=== PATIENT | female | born 1955 | race Caucasian/White ===

== ENCOUNTER 2022-08-19 10:36 | Outpatient (OUT) | payer MEDICARE, SELFPAY ==
--- NOTE | 2022-08-19 10:48 | ECG_ITS ---
[facility] Test Date: 2022-08-19 Pat Name: Catalina Rodriguez Department: Room: - Gender: Female Reconciliation Manager: : [id number] Requested By: LANCE COLÓN Order Number: [id number] Reading MD: YARELY MORRISON Measurements Intervals [place] Rate: 72 P: 5 MA: 146 QRS: -4 QRSD: 86 T: 4 QT: 396 QTc: 435 Interpretive Statements SINUS RHYTHM VOLTAGE CRITERIA FOR LVH [MEETS CRITERIA IN ONE OF: R(aVL), S(V1), R(V5), R(V5/V6)+S(V1)] Non-Specific T wave inversion in III No previous ECG available for comparison Electronically Signed On 08-20-2022 7:15:14 EDT by YARELY MORRISON
== END 2022-08-19 10:37 ==
PROVIDERS: PCP Family Medicine
DX: Z01.810 Encounter for preprocedural cardiovascular examination (principal); K82.8 Other specified diseases of gallbladder
CPT/HCPCS: 93005

== ENCOUNTER 2022-08-23 07:45 | Day surgery (SDC) | payer MEDICARE, SELFPAY ==
[2022-08-19 11:08] VITALS: BP 136/87; PULSE 77; RESP 20; TEMP 36.3; O2SAT 98; BMI 35.5
[2022-08-23] VITALS (16 sets, daily range): BP systolic 136–175; BP diastolic 64–84; PULSE 61–80; RESP 14–24; TEMP 36.4–36.6; O2SAT 89–100; BMI 34.9
[2022-08-23] MEDS: LACTATED RINGER'S SOLUTION 1,000 ML 50 ML IV (08:50)
[2022-08-23] MEDS: INDOCYANINE GREEN 25 MG VIAL INJ (08:53)
[2022-08-23] MEDS: CEFAZOLIN SODIUM/DEXTROSE,ISO 2 GM/50 ML PIGGYBACK IV (09:05)
[2022-08-23] MEDS: BUPIVACAINE HCL 0.5% PF 50 MG/10 ML VIAL 20 ML INJ (09:18)
[2022-08-23] MEDS: HYDROCODONE/ACETAMINOPHEN 5-325 MG TABLET 1 TAB PO (10:45)
[2022-08-23] MEDS: HYDROMORPHONE HCL 0.5 MG/0.5 ML SYRINGE IV ×2 (10:55→11:06)
--- NOTE | 2022-08-23 11:37 | PM.GSPRC ---
Date of procedure: 08/19/22 Indications for Procedure: This patient is a 67-year-old female who was recently seen for episodes of right upper quadrant pain. Gallbladder ultrasound was normal. HIDA scan revealed a decreased gallbladder ejection fraction. . Robotic cholecystectomy was recommended. The risks benefits options and potential complications of the procedure were discussed in detail with the patient and they agreed to proceed and consent was signed. Pre-op diagnosis: biliary dyskinesia Post-op diagnosis: same Procedure: robotic cholecystectomy with ICG cholangiogram Surgeon: Gilson Stephenson Procedure Summary: The patient was brought to the operating room placed in the supine position. Gen. anesthesia was induced and the patient was intubated. The abdomen was prepped and draped in usual sterile fashion. She had been given preoperative IV antibiotics and was also given preoperative ICG. A site in the left upper quadrant was infiltrated with half percent Marcaine with epinephrine. A small incision was made. A 12 mm port was placed through this incision and advanced into the peritoneal cavity under laparoscopic guidance. The abdomen was then insufflated to 15 mmHg of carbon dioxide. The camera was reintroduced and safe port site entry was confirmed. Three 8 mm robotic ports were then placed, one at the umbilicus and two in the right lateral abdomen following local anesthesia under direct visualization. The camera was removed and an additional 8 mm port was placed through the 12 mm port. the patient was then placed in reverse Trendelenburg position and banked to the left. At this time the da Felicity XI was brought to the field and camera was introduced and all ports direct and instruments introduced in standard fashion.at this time I left the operating table and attended the surgeon consult. The fundus of the gallbladder is grasped and retracted cephalad. The region of Calvin's pouch was grasped and retracted laterally. Dissection was not carried out in the region of the triangle of Calot. The cystic duct was readily identified. This was confirmed with a cane flume watchman. This was then divided between clips. Posterior to this the cystic artery was identified. This was divided after clip placement. The gallbladder was then taken off the liver using electrocautery. Excellent hemostasis and secured clip placement was noted. The gallbladder was then placed in a retrieval bag. This was brought out through the 12 mm port site intact. Instruments, camera and ports were subsequently removed and the abdomen was desufflated. Skin incisions were closed with subcuticular sutures of 4-0 Vicryl. Sterile dressings were applied. The patient tolerated the procedure well and was transferred to the recovery area in stable condition. Estimated blood loss (mL): 2 Specimens: gallbladder Complications: No
== END 2022-08-23 13:00 | disposition home or self-care (01) ==
PROVIDERS: PCP Family Medicine; Visit Provider Surgery
PROC: (CPT 47563; principal; 2022-08-23 08:30)
DX: K82.8 Other specified diseases of gallbladder (principal); Z96.651 Presence of right artificial knee joint; J84.112 Idiopathic pulmonary fibrosis; G47.33 Obstructive sleep apnea (adult) (pediatric); R05.3 Chronic cough; J98.4 Other disorders of lung
CPT/HCPCS: 47563; 36415; 88304; 99999; J1170; J2704

== ENCOUNTER 2025-01-22 14:23 | Outpatient (OUT) | payer OTHER, SELFPAY ==
--- OUTSIDE RECORDS SUMMARY | 2025-01-22 14:30 | XMS_ITS | Patient Health Record ---
Author Organization [facility] in [place] Address [address] [place] [address] Care Team Providers Care Gl Accountant Name Role Phone Eric Dailey MD Primary Care Provider Unavailab le Allergies Allergen (clinical drug ingredient) Drug/Non Drug Allergy documented on EMR Reaction Allergy Type Onset Date Status Substance with sulfonamide s tructure and antibacterial mechanism of action (substance) Sulfa Antibiotics Unknown Drug Allergy Active Reason For Referral No Information Medications Medication SIG (Take, Route, Frequency, Duration) Notes Start Date End Date Status Esbriet 267 MG 3 capsules with food Orally Thre e times a day ActiveLevothyroxine SodiumActiveOmeprazole 40 MG1 capsule 30 minutes before morning meal Orally Once a dayActiveSimvastatin 40 MG1 tablet in the evening Orally Once a dayActive Social History Tobacco Use: Social History Observation Description Date Details (start date - stop date) Never Smoker NA - NA Tobacco Use/Smoking Question Answer Notes Patient is a nonsmoker Problems Problem Type SNOMED Code ICD Code Onset Dates Problem Status W/U Status Risk Notes Problem History of excision of intestinal structure (605450121) Acquired absence of other specified parts of digestive tract (Z90.49) Activeconfirmed Plan Of Treatment No Information Insurance Providers Payer Name Payer Address Payer Phone Subscriber Number Group Number Insured Name Patient Relationship to Insured Coverage Start Date Coverage End Date [place] [address] [place] [address] [id number] Bárbara Rodriguezelf - patient is the insuredAARP MEDICARE ADVANTAGEPO [address] [address] [place] [phone], TracySelf - patient is the insured Medical (General) History Medical History History ICD Code Abdominal pain, RUQ R10.11 Biliary dyskinesia K82.8 Surgical History Surgery Date(Month/Year) robotic cholecystectomy with ICG cholang iogram DOS 08/23/22 Dr Stephenson 08/23/2022 L shoulder Triceptear 2013 r knee replacement 2013 knee meniscus 1996 Hospitalization History Reason Date(Month/Year) see above
--- OUTSIDE RECORDS SUMMARY | 2025-01-22 14:30 | XMS_ITS | Clinical Summary ---
Demographics Address [address] [place] [address] Home Phone Mobile Phone Email Address Preferred Language en Marital Status Mormonism Affiliation Unknown Race White Ethnic Group Not or Lati no Author Organization [facility] Address [address] [place] [address] Care Team Providers Care Passenger Service Supervisor Name Role Phone Eric Dailey MD Primary Care Provider [phone] Social History Tobacco UseTypesPacks/DayYears UsedDateSmoking Tobacco: Never Assessed CommentsUnknownSex and Gender InformationValueDate RecordedSex Assigned at Not on fileLegal UxsMysthi09/15/2023 6:35 PM EDTGender IdentityNot on fileSexual OrientationNot on file Last Filed Vital Signs Vital SignReadingTime TakenCommentsBlood Pressure--Pulse--Temperature-- Respiratory Rate--Oxygen Saturation--Inhaled Oxygen Concentration--Nolaep64.7 kg (178 lb)10/27/2021 12:00 PM KDGFktgee352.9 cm (5' 1 )10/27/2021 12:00 PM EDTBody Mass Index33.6308 12:00 PM EDT Plan of Treatment Not on file Insurance * Guarantor: Catalina Rodriguez TypeRelation to PatientDate of PhoneBilling AddressPersonal/TjqipfQbtv81/25/1956 [address] [place] [address] Care Teams Team MemberRelationshipSpecialtyStart DateEnd Date Eric Dailey MD PCP - GeneralFamily Medicine11/11/22
--- OUTSIDE RECORDS SUMMARY | 2025-01-22 14:30 | XMS_ITS | Clinical Summary ---
Author Organization [facility] Address [address] [place] [address] Care Team Providers Care Data Compiler Name Role Phone Eric Dailey MD Primary Care Provider Allergies Active AllergyReactionsCriticalityNoted DateCommentsSulfa (Sulfonamide Antibiotics)Rash-Mild06/22/2017 Medications MedicationSigDispense QuantityRefillsLast FilledStart DateEnd DateStatus simvastatin (ZOCOR) 40 mg tablet 40 mg once daily.03/17/2017Active SYNTHROID 150 mcg tablet 150 mcg once daily, 30 min prior to meal.04/21/2017Active omeprazole (PriLOSEC) 20 mg delayed release capsule 20 mg once daily.04/22/2017Active melatonin 10 mg Tablet 10 mg at bedtime.Active acetaminophen (TYLENOL ORAL) Indications:unknown dosageas needed. Indications: unknown dosageActive albuterol 90 mcg/actuation HFA inhaler Inhale 2 puffs by mouth every four to six hours as needed for shortness of breath. 1 inhaler 12104/10/2017Active pirfenidone (ESBRIET) 801 mg tablet Take 1 tablet (801 mg) by mouth three times daily with meals. 90 tablet Active Active Problems ProblemNoted DateDiagnosed DateIPF (idiopathic pulmonary fibrosis)08/04/[address]08/04/2017Interstitial lung uccmlvd5506/27/2017Dyspnea on nfglpmxy82/17/2018 Family History Medical HistoryRelationNameCommentsDiabetesMotherRelationNameStatusComments Mother Social History Tobacco UseTypesPacks/DayYears UsedDateSmoking Tobacco: FormerCigarettes0.310008 - 1978Smokeless Tobacco: FormerAlcohol UseStandard Drinks/WeekCommentsYes0 (1 standard drink = 0.6 oz pure alcohol)occasionalCommentsUnknownSex and Gender InformationValueDate RecordedSex Assigned at BirthNot on fileLegal Sex Smooad1105/26/2017 11:48 AM EDTGender IdentityNot on fileSexual OrientationNot on file Last Filed Vital Signs Vital SignReadingTime TakenCommentsBlood Hzsakhxa740/6311 2:44 PM EST Iuzgy866301/17/2019 2:44 PM ESTTemperature--Respiratory Yghl472603/19/2018 2:44 PM ESTOxygen Gxgrixfote52%01/17/2019 2:44 PM ESTInhaled Oxygen Concentration-- Ekiggv01.4 kg (192 lb 9.6 oz)01/17/2019 2:44 PM MWBGguelu785.9 cm (5' 0.2 ) 01/17/2019 2:44 PM ESTBody Mass Index37.37103/19/2018 2:44 PM EST Plan of Treatment Health MaintenanceDue DateLast DoneCommentsCologuard (average risk only) 1955 8231Qmfzjvrrqsf11/25/1957Colorectal Cancer Jiauvsgmm69/25/1957FIT (average risk only)1956Hepatitis C Mtfynojqs04/25/1957DTaP,Tdap,and Td Vaccines (1 - Tdap)1975Pneumococcal Vaccines 50years + (1 of 1 - PCV)2006Zoster Recombinant Vaccines (1 of 2)2006DEXA Bone Density Xkofrbej30/25/2022 Alternating Mammogram/MRI/OVID-19 Vaccine (1 - 2024- season)2024Influenza Vaccine (#1)2024reast Cancer Screening 01/30/20255123Hxrppejsl20Respiratory Syncytial Virus (RSV) or ages 60 years and older (1 - 1-dose 75+ series)2031 Respiratory Syncytial Virus (RSV) ages 0 thru 19 monthsAged OutNo longer eligible based on patient's age to complete this topic Insurance Care Teams Team MemberRelationshipSpecialtyStart DateEnd Date Eric Dailey MD [address] [place] [address] PCP - GeneralFamily Medicine05/31/17
--- OUTSIDE RECORDS SUMMARY | 2025-01-22 14:30 | XMS_ITS | Clinical Summary ---
Author Organization [employer] Address [id number] [address] [place] [address] Care Team Providers Care Dumper Mold Cleaner Name Role Phone Antonia BurtRadha GUZMANN-POCKET GRINDER OPERATOR Primary Care Provider [phone] Allergies Active AllergyReactionsCriticalityNoted DateCommentsSulfa (Sulfonamide Antibiotics)Itching,YsjrAokjkn69/18/2017 Medications MedicationSigDispense QuantityRefillsLast FilledStart DateEnd DateStatus omeprazole (PriLOSEC) 20 mg capsule Take 1 capsule (20 mg total) by mouth once daily.Active simvastatin (ZOCOR) 40 mg tablet Take 1 tablet (40 mg total) by mouth in the morning.09/29/2016Active SYNTHROID 150 mcg tablet Take 1 tablet (150 mcg total) by mouth in the morning.10/26/2016Active melatonin 10 mg tablet Take 10 mg by mouth nightly as needed.Active HYDROcodone-acetaminophen (NORCO) 5-325 mg per tablet as needed.10/10/2017Active pirfenidone 801 mg tablet Indications:Fibrosis lung (CMS-HCC)TAKE 1 TABLET BY MOUTH THREE TIMES DAILY WITH FOOD 60 tablet 5ActiveHospital, Clinic, or Other Facility Administered Medication Ordered DoseRouteFrequencyStart DateEnd DateStatus albuterol (PROVENTIL,VENTOLIN) nebulizer solution 2.5 mg Indications:Idiopathic pulmonary fibrosis (CMS-HCC)2.5 mgnebuOnce as needed 1Active Active Problems ProblemNoted DateDiagnosed DateIdiopathic pulmonary bitnjboh74/09/2019Dyspnea on djhedhyv60/18/2017Chronic cough10/28/2016OSA on CPAP10/28/2016History of tobacco use10/28/2016Restrictive lung kkdntrt0610/28/2016 Resolved Problems ProblemNoted DateDiagnosed DateResolved DateFibrosis lung Abnormal CT scan, lung Family History Medical HistoryRelationNameCommentsHeart diseaseMotherAnesthesia problemsNeg Hx RelationNameStatusCommentsFatherDeceasedMotherDeceased Social History Tobacco UseTypesPacks/DayYears UsedDateSmoking Tobacco: DljjqzCphisupmvs49 03/06/1971 - 03/06/1978Smokeless Tobacco: Never Tobacco Cessation:Counseling Given: Not Answered Alcohol UseStandard Drinks/WeekCommentsNo1 (1 standard drink = 0.6 oz pure alcohol)ChildcareAnswerDate WiabbhrcDbqyhbvlrQabohts18/03/2019EmploymentAnswer Date KnwasqysVdtoiqpusyWcwquyy45/03/2019Hunger ScreeningAnswerDate Recorded Within the past 12 months we worried whether our food would run out before we got money to buy more.Never True06/02/2022Within the past 12 months the food we bought just didn't last and we didn't have money to get more.Never True 3Purpose - LifeAnswerDate RecordedPurpose and direction in lifeUnknown 1CommentsNoSex and Gender InformationValueDate RecordedSex Assigned at BirthNot on fileLegal EetHxorxh60/06/2015 11:34 AM EDTGender IdentityNot on fileSexual OrientationNot on file Last Filed Vital Signs Vital SignReadingTime TakenCommentsBlood Mxpcffvg258/7207 10:43 AM EDT Uobgg1696/10/2025 10:43 AM ZGSQcmznjnmion00.6 ??C (97.8 ??F)11/12/2020 11:21 AM EDTRespiratory Chhz489106/02/2022 10:24 AM EDTOxygen Xopvaellru87%09/19/2024 10:43 AM EDTInhaled Oxygen Concentration--Bgpsuk36.1 kg (178 lb 11.2 oz)09/19/2024 10:43 AM UUGNvyoxo568.9 cm (5' 1 )09/19/2024 10:43 AM EDTBody Mass Index33.77 09/19/2024 10:43 AM EDT Plan of Treatment DateTypeDepartmentCare Team (Latest Contact Info)Uxuxfiaidun10/08/2026 3:30 PM ESTOffice Visit [facility] [address] [place] [id number] Stefani Asif, DO [address] [address] Health MaintenanceDue DateLast DoneCommentsDepression Yvhiprffn11/25/1969Tobacco Mhvtouudo52/25/1969Adult BMI Follow Up Plan1974DTaP,Tdap and Td Vaccines (1 - Tdap)1975Zoster (Shingles) Vaccine (1 of 2)2006Fall Risk Evtzvuizh92/25/2022COVID-19 Vaccine (3 - 2024- season)/, 05/20/2020Influenza Mjmrsfn91/, 12/14/2015Adult BMI Screening RSV ( or age 60+ yrs) (1 - 1-dose 75+ series) 2031 Medical Devices Not on file Insurance Care Teams Team MemberRelationshipSpecialtyStart DateEnd Date Javed, Felisa L, HOUSEKEEPER SUPERVISOR-POCKET GRINDER OPERATOR [address] [place] [address] PCP - GeneralNurse Practitioner09/03/24
--- NOTE | 2025-01-22 14:56 | PM.CN ---
Consult Note: HPI Data of Consult Patient: known to practice within the last 3 years Consult date: 01/22/25 Requesting Physician: Alyssa Mathur NP Primary Care Provider: MARY CELMENS Consult Narrative Reason for consult: thoracic pain Narrative: Catalina Rodriguez a pleasant 69 year old female with severe thoracic pain starting around 3 months ago without cause or injury. denies rash or shingles at that time. notes pain in upper back has been up to 10/10 burning sharp pain. notes current pain 8/10 but increases with standing, walking, lifting, activity, sleep, and weather changes. Patient cannot tolerate PT due to pain, reports historically PT has not been beneficial. She tries to engage in HEP at least 3x/week > 6 weeks without improvement. finds mild benefit to heat, failed oral steroids and robaxin. on meloxicam 15mg daily with minimal relief through PCP. Recently underwent thoracic MRI consistent with thoracic disc bulge at T6,7 and degenerative changes. cc:: CC: Alyssa Mathur NP Review of Systems ROS Musculoskeletal Reports: back pain PFSH PFSH Medical History (Updated 01/22/25 @ 15:00 by Alyssa Mathur NP) Chronic cough ?R05.3 - Chronic cough (ICD-10) Sleep apnea ?G47.30 - Sleep apnea, unspecified (ICD-10) Arthritis ?M19.90 - Unspecified osteoarthritis, unspecified site (ICD-10) COVID-19 ?U07.1 - COVID-19 (ICD-10) Migraine ?G43.909 - Migraine, unspecified, not intractable, without status migrainosus (ICD-10) GERD (gastroesophageal reflux disease) ?K21.9 - Gastro-esophageal reflux disease without esophagitis (ICD-10) Hypothyroidism ?E03.9 - Hypothyroidism, unspecified (ICD-10) Biliary dyskinesia ?K82.8 - Other specified diseases of gallbladder (ICD-10) Pulmonary fibrosis ?J84.10 - Pulmonary fibrosis, unspecified (ICD-10) Surgical History History of lung biopsy ?Z98.890 - Other specified postprocedural states (ICD-10) History of colonoscopy ?Z98.890 - Other specified postprocedural states (ICD-10) History of arthroscopy of shoulder ?Z98.890 - Other specified postprocedural states (ICD-10) History of arthroscopy of knee ?Z98.890 - Other specified postprocedural states (ICD-10) History of arthroplasty of knee ?Z96.659 - Presence of unspecified artificial knee joint (ICD-10) History of breast biopsy ?Z98.890 - Other specified postprocedural states (ICD-10) Family History Other CHF (congestive heart failure) Family history of diabetes mellitus Family history of seizures Social History Within the past year, how often did you have a drink containing alcohol: monthly or less Smoking status: Former smoker What tobacco products do you use: cigarettes Smoking quit date/years: >15 years ago Non-prescribed substance use: denies use Previous occupational history: Retired Highest level of school completed/degree received: high school graduate Meds Home Medications and Allergies Home Medications ?Medication ?Instructions ?Recorded ?Confirmed ?Type levothyroxine 137 mcg tablet 137 mcg PO QDAY 08/19/22 08/23/22 History melatonin 10 mg capsule 10 mg PO DAILY 08/19/22 08/23/22 History multivitamin (Daily Multi-Vitamin 1 tab PO DAILY 08/19/22 08/23/22 History tablet) omeprazole 40 mg capsule,delayed 40 mg PO BID 08/19/22 08/23/22 History release pirfenidone 801 mg tablet 801 mg PO QDAY 08/19/22 08/23/22 History simvastatin 40 mg tablet 40 mg PO QDAY 08/19/22 08/23/22 History oxycodone-acetaminophen 5 mg-325 1 tab PO Q6H PRN pain #6 tabs 08/23/22 Rx mg tablet Allergies Allergy/AdvReac Type Severity Reaction Status Date / Time Sulfa (Sulfonamide Allergy Rash Verified 08/19/22 11:05 Antibiotics) Exam Constitutional Documenting provider has reviewed patient's vital signs: yes Common normals: no apparent distress, oriented x3 and alert General appearance: cooperative HENMT Common normals: normocephalic, hearing grossly normal bilaterally and moist oral mucous membranes Head and scalp: normocephalic Eye Common normals: PERRL Pupil: PERRL Neck & C-Spine Common normals: full ROM General: normal visual inspection Chest Common normals: inspection of chest normal Respiratory Common normals: normal respiratory effort, no retractions and no use of accessory muscles Back & Pelvis Thoracic spine/upper back: ROM limited, pain with ROM, thoracic spinal tenderness and paraspinal muscle tenderness; no paraspinal muscle spasm Other: radiculopathy noted to bilateral T6/7 positive facet loading Neuro Common normals: oriented x3 Sensorium/orientation: alert Psych Common normals: mental status grossly normal, thought process normal, cooperative, affect normal, speech normal and activity/motor behavior normal Speech: normal speech Thought process: normal thought process Results Additional Findings Additional findings: If on a controlled substance or opioids, I have checked an [place] report on this patient and there are no aberrancies noted in the prescribing history.??If on a controlled substance or opioid a drug screen was completed and reviewed within the last year, and if there has not been a drug screen completed we ordered one today to monitor higher risk, state monitored pain medication use. As part of providing excellent, safe, comprehensive care, the following was completed at our patient's visit: 1. A medication reconciliation and review to ensure accurate knowledge of current/active medications, including asking our patients to inform us about any blsf-czt-xjfefcj medications or herbal remedies/nutritional supplements/alternative remedies. 2. A review to specifically ensure our patients have had annual screening for screening for depression, screening for tobacco use, and screening for unhealthy alcohol use. For concerning screenings had a discussion with the patient, provided patient education, and recommended follow-up with primary care provider when appropriate. If patient noted with a risk of falling, they received education on strength, gait, and balance training to prevent future risk of falling. Portions of this note may have been carried over from the previous visit and updated as appropriate. Please note this office utilizes paper charting in addition to the electronic medical record. A list of current medications, vitals, and PMH is available there as the clinical staff outside of myself do not have access to [employer] charting during the clinic day operations. As part of providing quality comprehensive care the current medications, vitals, and PMH were reviewed in the paper chart. Assessment and Plan Assessment and Plan (1) Bulging of thoracic intervertebral disc: (2) Thoracic radiculopathy: (3) Myofascial pain: Plan The patient has had over 3 months of moderate to severe thoracic pain with functional impairment and inadequate response to conservative care including NSAIDS (unless there are contraindication such as concurrent blood thinners), multiple oral or topical pain medications, and home exercise program/physical therapy.? I have reviewed the imaging of the thoracic spine and no red flags were identified.? The Oswestry Disability Index was completed, and the patient scored a 24%.? bilateral T6-7 TFESI under fluoroscopy for thoracic radiculopathy and disc bulge dc robaxin start baclofen 5-10mg tid prn pain/spasms continue HEP as tolerated continue prn heat f/u after injection
== END 2025-01-22 14:24 | disposition home or self-care (01) ==
PROVIDERS: PCP Nurse Practitioner; Visit Provider Nurse Practitioner
DX: M51.34 Other intervertebral disc degeneration, thoracic region (principal); M54.14 Radiculopathy, thoracic region; M79.18 Myalgia, other site
CPT/HCPCS: G0463

== ENCOUNTER 2025-01-29 18:51 | Emergency (ER) | payer OTHER, SELFPAY ==
[2025-01-29 19:05] VITALS: BP 112/61; PULSE 88; TEMP 36.8; O2SAT 97; BMI 28.2
[2025-01-29 22:18] VITALS: BP 103/57; PULSE 77; TEMP 36.8; O2SAT 96
--- NOTE | 2025-01-29 22:36 | ED.BACK1 ---
HPI HPI - Back Pain/Injury General Chief Complaint: Back Pain/Injury Stated Complaint: back pain Time Seen by Provider: 01/29/25 19:28 Source: family Mode of arrival: Wheelchair Limitations: physical limitation History of Present Illness HPI Narrative: This 69-year-old female with a history of herniated disks in her back and sciatica 1990 presents for evaluation of acute worsening of pain in her right low back and buttock radiating down her leg. 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 She denies any falls. She has no weakness or numbness the pain is radiated down the anterior aspect of her right leg to her knee. She does not have any fever. Her symptoms started earlier today. She has taken baclofen several times a day. She is in pain management. She is not on any narcotic medication. She denies any loss of bowel or bladder control. She has not had any fever. She has had knee replacement on the right. She is not diabetic. Related Data Home Medications ?Medication ?Instructions ?Recorded ?Confirmed levothyroxine 137 mcg tablet 137 mcg PO QDAY 08/19/22 08/23/22 pirfenidone 801 mg tablet 801 mg PO QDAY 08/19/22 08/23/22 losartan 100 mg tablet 100 mg PO DAILY 01/22/25 01/22/25 pantoprazole 40 mg tablet,delayed 40 mg PO BID 01/22/25 01/22/25 release Allergies Allergy/AdvReac Type Severity Reaction Status Date / Time Sulfa (Sulfonamide Allergy Rash Verified 01/29/25 19:05 Antibiotics) Opioid HPI Opioid Management Most Recent Opioid Data: Last Pain Scale 10 01/29/25, 22:49 Last ED Pain Assessment 01/29/25, 22:19 Last MAR Pain Assessment 01/29/25, 23:23 Review of Systems ROS Status of ROS 10 or more systems reviewed and unremarkable except as noted in history and below [facility] Medical History (Updated 01/29/25 @ 23:13 by Lorraine Martinez MD) Chronic cough ?R05.3 - Chronic cough (ICD-10) Sleep apnea ?G47.30 - Sleep apnea, unspecified (ICD-10) Arthritis ?M19.90 - Unspecified osteoarthritis, unspecified site (ICD-10) COVID-19 ?U07.1 - COVID-19 (ICD-10) Migraine ?G43.909 - Migraine, unspecified, not intractable, without status migrainosus (ICD-10) GERD (gastroesophageal reflux disease) ?K21.9 - Gastro-esophageal reflux disease without esophagitis (ICD-10) Hypothyroidism ?E03.9 - Hypothyroidism, unspecified (ICD-10) Biliary dyskinesia ?K82.8 - Other specified diseases of gallbladder (ICD-10) Pulmonary fibrosis ?J84.10 - Pulmonary fibrosis, unspecified (ICD-10) Surgical History History of lung biopsy ?Z98.890 - Other specified postprocedural states (ICD-10) History of colonoscopy ?Z98.890 - Other specified postprocedural states (ICD-10) History of arthroscopy of shoulder ?Z98.890 - Other specified postprocedural states (ICD-10) History of arthroscopy of knee ?Z98.890 - Other specified postprocedural states (ICD-10) History of arthroplasty of knee ?Z96.659 - Presence of unspecified artificial knee joint (ICD-10) History of breast biopsy ?Z98.890 - Other specified postprocedural states (ICD-10) Family History Other CHF (congestive heart failure) Family history of diabetes mellitus Family history of seizures Social History Within the past year, how often did you have a drink containing alcohol: monthly or less Smoking status: Former smoker What tobacco products do you use: cigarettes Smoking quit date/years: >15 years ago Non-prescribed substance use: denies use Previous occupational history: Retired Highest level of school completed/degree received: high school graduate Little interest or pleasure in doing things: not at all Feeling down, depressed, or hopeless: not at all Exam Narrative Exam Narrative: Vital signs and Nursing Notes reviewed: Is afebrile with a normal pulse, normal blood pressure, she is not hypoxic with pulse ox of 96% on room air General: Awake, alert, oriented, nontoxic but uncomfortable appearing adult female, she is sitting on the edge of the bed, she cannot lie down HEENT: Normocephalic atraumatic, mucous membranes are moist and pink, eyes are clear, normal conjunctiva, vision is grossly intact Chest: Lungs are clear to auscultation with good air entry, there is no wheezing rhonchi or rales appreciated no accessory muscle use, patient is speaking in complete sentences-no chest wall tenderness to palpation CVS: Regular rate and rhythm S1-S2, no murmurs rubs or gallops, pulses are brisk and equal bilaterally ABD: Soft, nondistended, nontender, no rebound guarding or rigidity, bowel sounds are normal, no pulsatile masses appreciated Extremities: Moving all extremities, no lower extremity tenderness or swelling noted, no calf swelling or tender Musc: Midline bony vertebral tenderness or step-off, there is tenderness in the right lower lumbar region and right buttock with pain with palpation of the piriformis muscle Skin: Normal in appearance without rash,pallor, petechiae or purpura Neuro: No focal deficits, no saddle anesthesia appreciated, right patellar reflexes diminished patient is status post knee replacement, left patellar reflexes normal, push and pulls of the lower extremities are normal Constitutional Vital Signs, click to edit/add: Last Vital Signs Temp 98.3 F 01/29/25 22:18 Pulse 77 01/29/25 22:18 Resp 16 01/29/25 22:18 BP 103/57 01/29/25 22:18 Pulse Ox 96 01/29/25 22:18 O2 Del Method Room Air 01/29/25 19:05 Course Vital Signs Vital signs: Vital Signs Temperature 98.3 F 01/29/25 19:05 Pulse Rate 88 01/29/25 19:05 Respiratory Rate 18 01/29/25 19:05 Blood Pressure 112/61 01/29/25 19:05 Pulse Oximetry 97 01/29/25 19:05 Oxygen Delivery Method Room Air 01/29/25 19:05 Temperature 98.3 F 01/29/25 22:18 Pulse Rate 77 01/29/25 22:18 Respiratory Rate 16 01/29/25 22:18 Blood Pressure 103/57 01/29/25 22:18 Pulse Oximetry 96 01/29/25 22:18 Oxygen Delivery Method Room Air 01/29/25 19:05 MDM - Back Pain/Injury MDM Narrative Medical decision making narrative: This 69-year-old female presents for evaluation of sciatica. She states that she was lifting laundry baskets at work and strained her back. She does have a history of chronic back pain. She is claiming this is Workmen's Comp. She does not have any neurologic symptoms related to her back pain. She has pain in the right lower lumbar region and buttock that radiates at times into the top of her right leg. Her neuroexam is normal. She has not had any bowel or bladder dysfunction. She is on baclofen for her chronic back pain. I did review her OAR[place] report. It is negative for any narcotic medication. She was medicated with IM Solu-Medrol, Toradol, morphine and given two Percocet to take home. Explained to her that in light of her claiming this is Workmen's Comp. I cannot give her time off from work or prescribed narcotic medications to her. She verbalizes understanding of this. She was given information to follow-up with [facility]. Discharge Plan Discharge Chief Complaint: Back Pain/Injury Clinical Impression: Sciatica Patient Disposition: Home, Self-Care Time of Disposition Decision: 23:14 Condition: Good Prescriptions / Home Meds: No Action levothyroxine 137 mcg tablet 137 mcg PO QDAY pirfenidone 801 mg tablet 801 mg PO QDAY pantoprazole 40 mg tablet,delayed release (DR/EC) 40 mg PO BID losartan 100 mg tablet 100 mg PO DAILY Print Language: American Instructions: Sciatica (ED) Referrals: MARY CLEMENS [Primary Care Provider, [facility] CLERK] - 1 week Discharge Date/Time: 01/29/25 23:20
[2025-01-29] MEDS: ONDANSETRON 4 MG RAPDIS TABLET SL (22:48)
[2025-01-29] MEDS: KETOROLAC TROMETHAMINE 30 MG/ML VIAL IM (22:49)
[2025-01-29] MEDS: METHYLPREDNISOLONE SOD SUCC PF 125 MG/2 ML VIAL IM (22:49)
[2025-01-29] MEDS: MORPHINE SULFATE 4 MG/ML VIAL IM (22:49)
--- OUTSIDE RECORDS SUMMARY | 2025-01-29 23:07 | XMS_ITS | Clinical Summary ---
Author Organization [facility] tem Address [id number] [address] [place] [address] Care Team Providers Care Safety Equipment Tester Name Role Phone Antonia BurtRadha GUZMANN-DROP WIRE OPERATOR Primary Care Provider [phone] Allergies Active AllergyReactionsCriticalityNoted DateCommentsSulfa (Sulfonamide Antibiotics)Itching,DvfhAcnpzd62/18/2017 Medications MedicationSigDispense QuantityRefillsLast FilledStart DateEnd DateStatus omeprazole [...] 1Active Active Problems ProblemNoted DateDiagnosed DateIdiopathic pulmonary udtdjlrp07/09/2019Dyspnea on vauynqfy21/18/2017Chronic cough10/28/2016OSA on CPAP10/28/2016History of tobacco use10/28/2016Restrictive lung xbntvgq1110/28/2016 Resolved Problems ProblemNoted DateDiagnosed DateResolved DateFibrosis lung Abnormal CT scan, lung Family History Medical HistoryRelationNameCommentsHeart diseaseMotherAnesthesia problemsNeg Hx RelationNameStatusCommentsFatherDeceasedMotherDeceased Social History Tobacco UseTypesPacks/DayYears UsedDateSmoking Tobacco: GckjzsXluelrwykz06 03/06/1971 - 03/06/1978Smokeless Tobacco: Never Tobacco Cessation:Counseling Given: Not Answered Alcohol UseStandard Drinks/WeekCommentsNo1 (1 standard drink = 0.6 oz pure alcohol)ChildcareAnswerDate JhrlkdraUyxysulniHypirag25/03/2019EmploymentAnswer Date UuirydyhYesvysiwpvCgmjuys65/03/2019Hunger ScreeningAnswerDate Recorded Within the past 12 months we worried whether our food would run out before we got money to buy more.Never True06/02/2022Within the past 12 months the food we bought just didn't last and we didn't have money to get more.Never True 3Purpose - LifeAnswerDate RecordedPurpose and direction in lifeUnknown 1CommentsNoSex and Gender InformationValueDate RecordedSex Assigned at BirthNot on fileLegal QqvFdekcq41/06/2015 11:34 AM EDTGender IdentityNot on fileSexual OrientationNot on file Last Filed Vital Signs Vital SignReadingTime TakenCommentsBlood Frtpwdpl993/7207 10:43 AM EDT Cidpc8539/10/2025 10:43 AM CGDBmpbcimsqpu50.6 ??C (97.8 ??F)11/12/2020 11:21 AM EDTRespiratory Jjju091006/02/2022 10:24 AM EDTOxygen Mmzhrgigce56%09/19/2024 10:43 AM EDTInhaled Oxygen Concentration--Wursej66.1 kg (178 lb 11.2 oz)09/19/2024 10:43 AM LBTKctjas416.9 cm (5' 1 )09/19/2024 10:43 AM EDTBody Mass Index33.77 09/19/2024 10:43 AM EDT Plan of Treatment DateTypeDepartmentCare Team (Latest Contact Info)Gxksxhlkqno82/08/2026 3:30 PM ESTOffice Visit [facility] [address] [place] [phone] Stefani Asif, DO [address] [address] Health MaintenanceDue DateLast DoneCommentsDepression Glykhdqgh57/25/1969Tobacco Fyijlcpbg73/25/1969Adult BMI Follow Up Plan1974DTaP,Tdap and Td Vaccines (1 - Tdap)1975Zoster (Shingles) Vaccine (1 of 2)2006Fall Risk Agyywswar00/25/2022COVID-19 Vaccine (3 - 2024- season)/, 05/20/2020Influenza Tdhtgyd89/, 12/14/2015Adult BMI Screening RSV ( or age 60+ yrs) (1 - 1-dose 75+ series) 2031 Medical Devices Not on file Insurance Care Teams Team MemberRelationshipSpecialtyStart DateEnd Date Javed, Felisa L, POCKET ASSEMBLER-DROP WIRE OPERATOR [address] [place] [address] PCP - GeneralNurse Practitioner09/03/24
--- OUTSIDE RECORDS SUMMARY | 2025-01-29 23:07 | XMS_ITS | Clinical Summary ---
Demographics Address [address] [place] [address] Home Phone Mobile Phone Email Address Preferred Language en Marital Status Uatsdin Affiliation Unknown Race White Ethnic Group Not or Lati no Author Organization [facility] Address [address] [place] [address] Care Team Providers Care Animal Shelter Clerk Name Role Phone Eric Dailey MD Primary Care Provider [phone] Social History Tobacco UseTypesPacks/DayYears UsedDateSmoking Tobacco: Never Assessed CommentsUnknownSex and Gender InformationValueDate RecordedSex Assigned at Not on fileLegal JitGxpbyz83/15/2023 6:35 PM EDTGender IdentityNot on fileSexual OrientationNot on file Last Filed Vital Signs Vital SignReadingTime TakenCommentsBlood Pressure--Pulse--Temperature-- Respiratory Rate--Oxygen Saturation--Inhaled Oxygen Concentration--Zzqjmo45.7 kg (178 lb)10/27/2021 12:00 PM XBVAkpsjw202.9 cm (5' 1 )10/27/2021 12:00 PM EDTBody Mass Index33.6308 12:00 PM EDT Plan of Treatment Not on file Insurance * Guarantor: Catalina Rodriguez TypeRelation to PatientDate of PhoneBilling AddressPersonal/PrvpuvXnfv54/25/1956 [address] [place] [address] Care Teams Team MemberRelationshipSpecialtyStart DateEnd Date Eric Dailey MD PCP - GeneralFamily Medicine11/11/22
--- OUTSIDE RECORDS SUMMARY | 2025-01-29 23:07 | XMS_ITS | Clinical Summary ---
Author Organization [facility] Address [address] [place] [address] Care Team Providers Care Web Applications Administrator Name Role Phone Eric Dailey MD Primary Care Provider [phone] Allergies Active AllergyReactionsCriticalityNoted DateCommentsSulfa (Sulfonamide Antibiotics)Rash-Mild06/22/2017 Medications [...] (idiopathic pulmonary fibrosis)08/04/[address]08/04/2017Interstitial lung ehaeuau7106/27/2017Dyspnea on ppwjaznk63/17/2018 Family History Medical HistoryRelationNameCommentsDiabetesMotherRelationNameStatusComments Mother Social History Tobacco UseTypesPacks/DayYears UsedDateSmoking Tobacco: FormerCigarettes0.336804 - 1978Smokeless Tobacco: FormerAlcohol UseStandard Drinks/WeekCommentsYes0 (1 standard drink = 0.6 oz pure alcohol)occasionalCommentsUnknownSex and Gender InformationValueDate RecordedSex Assigned at BirthNot on fileLegal Sex Tokaoo7705/26/2017 11:48 AM EDTGender IdentityNot on fileSexual OrientationNot on file Last Filed Vital Signs Vital SignReadingTime TakenCommentsBlood Fsjuonze538/6311 2:44 PM EST Swiwi498701/17/2019 2:44 PM ESTTemperature--Respiratory Kula066303/19/2018 2:44 PM ESTOxygen Ehekrhgjlz26%01/17/2019 2:44 PM ESTInhaled Oxygen Concentration-- Obcdln85.4 kg (192 lb 9.6 oz)01/17/2019 2:44 PM OCUMpkpyo022.9 cm (5' 0.2 ) 01/17/2019 2:44 PM ESTBody Mass Index37.37103/19/2018 2:44 PM EST Plan of Treatment Health MaintenanceDue DateLast DoneCommentsCologuard (average risk only) 1955 3880Ohvbvxmusma15/25/1957Colorectal Cancer Cbvtcnauq28/25/1957FIT (average risk only)1956Hepatitis C Aqfyzbbet93/25/1957DTaP,Tdap,and Td Vaccines (1 - Tdap)1975Pneumococcal Vaccines 50years + (1 of 1 - PCV)2006Zoster Recombinant Vaccines (1 of 2)2006DEXA Bone Density Kamuncpu95/25/2022 Alternating Mammogram/MRI/OVID-19 Vaccine (1 - 2024- season)2024Influenza Vaccine (#1)2024reast Cancer Screening 01/30/20250002Fzoabgrlg28Respiratory Syncytial Virus (RSV) or ages 60 years and older (1 - 1-dose 75+ series)2031 Respiratory Syncytial Virus (RSV) ages 0 thru 19 monthsAged OutNo longer eligible based on patient's age to complete this topic Insurance Care Teams Team MemberRelationshipSpecialtyStart DateEnd Date Eric Dailey MD [address] [place] [address] PCP - GeneralFamily Medicine05/31/17
[2025-01-29] MEDS: OXYCODONE HCL/ACETAMINOPHEN 5MG/325MG 2 TAB PO (23:23)
== END 2025-01-29 23:20 | disposition home or self-care (01) ==
PROVIDERS: Emergency Provider Emergency Medicine; PCP Nurse Practitioner
DX: M54.31 Sciatica, right side (principal)
CPT/HCPCS: 96372; 99284; J1885; J2270; J2919; Q0162

== ENCOUNTER 2025-02-03 07:46 | Day surgery (SDC) | payer OTHER, SELFPAY ==
--- OUTSIDE RECORDS SUMMARY | 2025-02-03 07:50 | XMS_ITS | Clinical Summary ---
Author Organization [facility] Address [address] [place] [address] Care Team Providers Care Wood Calker Name Role Phone Eric Dailey MD Primary Care Provider [phone] Allergies Active AllergyReactionsCriticalityNoted DateCommentsSulfa (Sulfonamide Antibiotics)Rash-Mild06/22/2017 Medications [...] (idiopathic pulmonary fibrosis)08/04/[address]08/04/2017Interstitial lung lpgiakn0906/27/2017Dyspnea on kelemdgj89/17/2018 Family History Medical HistoryRelationNameCommentsDiabetesMotherRelationNameStatusComments Mother Social History Tobacco UseTypesPacks/DayYears UsedDateSmoking Tobacco: FormerCigarettes0.758564 - 1978Smokeless Tobacco: FormerAlcohol UseStandard Drinks/WeekCommentsYes0 (1 standard drink = 0.6 oz pure alcohol)occasionalCommentsUnknownSex and Gender InformationValueDate RecordedSex Assigned at BirthNot on fileLegal Sex Khthqz8705/26/2017 11:48 AM EDTGender IdentityNot on fileSexual OrientationNot on file Last Filed Vital Signs Vital SignReadingTime TakenCommentsBlood Ctxyvfwo294/6311 2:44 PM EST Xbwfj990001/17/2019 2:44 PM ESTTemperature--Respiratory Qmij722503/19/2018 2:44 PM ESTOxygen Ggsqayxpfo28%01/17/2019 2:44 PM ESTInhaled Oxygen Concentration-- Defcrq44.4 kg (192 lb 9.6 oz)01/17/2019 2:44 PM GSJZuizoa433.9 cm (5' 0.2 ) 01/17/2019 2:44 PM ESTBody Mass Index37.37103/19/2018 2:44 PM EST Plan of Treatment Health MaintenanceDue DateLast DoneCommentsCologuard (average risk only) 1955 8324Eqgbobvoluc90/25/1957Colorectal Cancer Bngbxxkgi92/25/1957FIT (average risk only)1956Hepatitis C Kgfntjsik56/25/1957DTaP,Tdap,and Td Vaccines (1 - Tdap)1975Pneumococcal Vaccines 50years + (1 of 1 - PCV)2006Zoster Recombinant Vaccines (1 of 2)2006DEXA Bone Density Xjuzgprt26/25/2022 Alternating Mammogram/MRI/OVID-19 Vaccine (1 - 2024- season)2024Influenza Vaccine (#1)2024reast Cancer Screening 01/30/20250435Oshyioccr79Respiratory Syncytial Virus (RSV) or ages 60 years and older (1 - 1-dose 75+ series)2031 Respiratory Syncytial Virus (RSV) ages 0 thru 19 monthsAged OutNo longer eligible based on patient's age to complete this topic Insurance Care Teams Team MemberRelationshipSpecialtyStart DateEnd Date Eric Dailey MD [address] [place] [address] PCP - GeneralFamily Medicine05/31/17
--- OUTSIDE RECORDS SUMMARY | 2025-02-03 07:50 | XMS_ITS | Clinical Summary ---
Demographics Address [address] [place] [address] Home Phone Mobile Phone Email Address Preferred Language en Marital Status Worship Affiliation Unknown Race White Ethnic Group Not or Lati no Author Organization [facility] Address [address] [place] [address] Care Team Providers Care Coremaking Supervisor Name Role Phone Eric Dailey MD Primary Care Provider [phone] Social History Tobacco UseTypesPacks/DayYears UsedDateSmoking Tobacco: Never Assessed CommentsUnknownSex and Gender InformationValueDate RecordedSex Assigned at Not on fileLegal RdbXugxml99/15/2023 6:35 PM EDTGender IdentityNot on fileSexual OrientationNot on file Last Filed Vital Signs Vital SignReadingTime TakenCommentsBlood Pressure--Pulse--Temperature-- Respiratory Rate--Oxygen Saturation--Inhaled Oxygen Concentration--Vudlsv50.7 kg (178 lb)10/27/2021 12:00 PM CGCWknyua719.9 cm (5' 1 )10/27/2021 12:00 PM EDTBody Mass Index33.6308 12:00 PM EDT Plan of Treatment Not on file Insurance * Guarantor: Catalina Rodriguez TypeRelation to PatientDate of PhoneBilling AddressPersonal/HrylngKlte25/25/1956 [address] [place] [address] Care Teams Team MemberRelationshipSpecialtyStart DateEnd Date Eric Dailey MD PCP - GeneralFamily Medicine11/11/22
--- OUTSIDE RECORDS SUMMARY | 2025-02-03 07:50 | XMS_ITS | Patient Health Record ---
Author Organization [facility] [place] Address [address] [place] [address] Care Team Providers Care Health Information Systems Technician Name Role Phone Eric Dailey MD Primary [...] Problem History of excision of intestinal structure ([id number]) Acquired absence of other specified parts of digestive tract (Z90.49) Activeconfirmed Plan Of Treatment No Information Insurance Providers Payer Name Payer Address Payer Phone Subscriber Number Group Number Insured Name Patient Relationship to Insured Coverage Start Date Coverage End Date [place] [address] [place] [address] [id number] Bárbara Rodriguezelf - patient is the insuredAARP MEDICARE ADVANTAGEPO [address] [address] [place] [phone], TracySelf - patient is the insured Medical (General) History Medical History History ICD Code Abdominal pain, RUQ R10.11 Biliary dyskinesia K82.8 Surgical History Surgery Date(Month/Year) robotic cholecystectomy with ICG cholang iogram DOS 08/23/22 Dr Stephenson 08/23/2022 L shoulder Triceptear 2013 r knee replacement 2013 knee meniscus 1996 Hospitalization History Reason Date(Month/Year) see above
--- OUTSIDE RECORDS SUMMARY | 2025-02-03 07:50 | XMS_ITS | Clinical Summary ---
Author Organization [employer] [facility] Address [id number] [address] [place] [address] Care Team Providers Care Lean Sensei Name Role Phone Antonia BurtRadha GUZMANN-BEAD WIRE INSULATOR Primary Care Provider [phone] Allergies Active AllergyReactionsCriticalityNoted DateCommentsSulfa (Sulfonamide Antibiotics)Itching,VlyjGtmtim97/18/2017 Medications MedicationSigDispense QuantityRefillsLast FilledStart DateEnd DateStatus omeprazole [...] 1Active Active Problems ProblemNoted DateDiagnosed DateIdiopathic pulmonary guonrtgw04/09/2019Dyspnea on hgxhyiky14/18/2017Chronic cough10/28/2016OSA on CPAP10/28/2016History of tobacco use10/28/2016Restrictive lung pvkieor0510/28/2016 Resolved Problems ProblemNoted DateDiagnosed DateResolved DateFibrosis lung Abnormal CT scan, lung Family History Medical HistoryRelationNameCommentsHeart diseaseMotherAnesthesia problemsNeg Hx RelationNameStatusCommentsFatherDeceasedMotherDeceased Social History Tobacco UseTypesPacks/DayYears UsedDateSmoking Tobacco: LjinvbBlbxzvwmrp89 03/06/1971 - 03/06/1978Smokeless Tobacco: Never Tobacco Cessation:Counseling Given: Not Answered Alcohol UseStandard Drinks/WeekCommentsNo1 (1 standard drink = 0.6 oz pure alcohol)ChildcareAnswerDate FwhckoidGqiyuklrdQhhcigh15/03/2019EmploymentAnswer Date IdaskebpZmtpjwvegfRbffbzz94/03/2019Hunger ScreeningAnswerDate Recorded Within the past 12 months we worried whether our food would run out before we got money to buy more.Never True06/02/2022Within the past 12 months the food we bought just didn't last and we didn't have money to get more.Never True 3Purpose - LifeAnswerDate RecordedPurpose and direction in lifeUnknown 1CommentsNoSex and Gender InformationValueDate RecordedSex Assigned at BirthNot on fileLegal LcaCeuoia60/06/2015 11:34 AM EDTGender IdentityNot on fileSexual OrientationNot on file Last Filed Vital Signs Vital SignReadingTime TakenCommentsBlood Cubyoyec288/7207 10:43 AM EDT Ycpdk5900/10/2025 10:43 AM KGYCxoifecxbom69.6 ??C (97.8 ??F)11/12/2020 11:21 AM EDTRespiratory Ovte264506/02/2022 10:24 AM EDTOxygen Ajikywqpxp35%09/19/2024 10:43 AM EDTInhaled Oxygen Concentration--Iiaxwg35.1 kg (178 lb 11.2 oz)09/19/2024 10:43 AM FSCFxqqmg971.9 cm (5' 1 )09/19/2024 10:43 AM EDTBody Mass Index33.77 09/19/2024 10:43 AM EDT Plan of Treatment DateTypeDepartmentCare Team (Latest Contact Info)Tlpgxvgveot10/08/2026 3:30 PM ESTOffice Visit [facility] [address] [place] [phone] Stefani Asif, DO [address] [address] Health MaintenanceDue DateLast DoneCommentsDepression Dijsmatkv07/25/1969Tobacco Slawohthk38/25/1969Adult BMI Follow Up Plan1974DTaP,Tdap and Td Vaccines (1 - Tdap)1975Zoster (Shingles) Vaccine (1 of 2)2006Fall Risk Wrvikzamm39/25/2022COVID-19 Vaccine (3 - 2024- season)/, 05/20/2020Influenza Smzeoos62/, 12/14/2015Adult BMI Screening RSV ( or age 60+ yrs) (1 - 1-dose 75+ series) 2031 Medical Devices Not on file Insurance Care Teams Team MemberRelationshipSpecialtyStart DateEnd Date Javed, Felisa L, DEPARTMENTAL SECRETARY-BEAD WIRE INSULATOR [address] [place] [address] PCP - GeneralNurse Practitioner09/03/24
[2025-02-03 08:43] VITALS: BP 116/77; PULSE 76; TEMP 36.5; O2SAT 99
[2025-02-03] MEDS: BUPIVACAINE HCL 0.25% PF 25 MG/10 ML VIAL INJ (09:38)
[2025-02-03] MEDS: DEXAMETHASONE SOD PHOS 10 MG/ML VIAL INJ (09:38)
[2025-02-03] MEDS: IOHEXOL 240 MG/ML - 10 ML VIAL INJ (09:38)
[2025-02-03] MEDS: LIDOCAINE HCL 2% 400 MG/20 ML MDV 5 ML INJ (09:38)
[2025-02-03] MEDS: 0.9 % SODIUM CHLORIDE 10 ML SYRINGE - SALINE FLUSH INJ (09:38)
[2025-02-03 09:40] VITALS: BP 125/99; BP 131/65; PULSE 60; PULSE 64; O2SAT 99
--- NOTE | 2025-02-03 09:43 | W.PM.PROCNOT ---
Date of procedure: 02/03/25 Pre-op diagnosis: Pain due to thoracic radiculopathy Post-op diagnosis: same as pre-op Procedure: Procedure: Bilateral T6-7 transforaminal epidural steroid injection Medications: Bupivacaine 0.25% 1cc, lidocaine 2% 1cc, dexamethasone 10mg The patient was seen and examined in the preoperative holding area.? Informed consent was obtained and placed on the chart.? Patient was brought to the medical procedure unit and placed in the prone position where a timeout was completed verifying the correct patient, procedure site, position, and planned special equipment using sterile aseptic technique.? Under direct fluoroscopic visualization a 25-gauge Quincke tipped spinal needle was advanced at level left T6-7 to the designated neural foramen where contrast dye was injected to show adequate spread.? There was no evidence of vascular or adverse uptake.? Epidural spread was appreciated.? The above-mentioned injectate was then placed in a 1.5 mL aliquot preceded by negative aspiration.? The needle was removed. The same procedure, at the same level, was completed on the opposite side. ? Patient was taken to the postprocedural recovery area and monitored for an appropriate length of time before found suitable for discharge in the accompaniment of a responsible adult. Anesthesia: Local Surgeon: Evangelina Jj Pathology: none sent Condition: stable Disposition: no change
== END 2025-02-03 09:45 | disposition home or self-care (01) ==
PROVIDERS: PCP Nurse Practitioner; Visit Provider Anesthesiology
DX: M54.14 Radiculopathy, thoracic region (principal); G89.29 Other chronic pain
CPT/HCPCS: 64479; J0665; J1100; Q9966

== ENCOUNTER 2025-02-12 14:30 | Outpatient (OUT) | payer OTHER, SELFPAY ==
--- OUTSIDE RECORDS SUMMARY | 2025-02-12 14:35 | XMS_ITS | Clinical Summary ---
Demographics Address [address] [place] [address] Home Phone Mobile Phone Email Address Preferred Language en Marital Status Mormon Affiliation Unknown Race White Ethnic Group Not or Lati no Author Organization [facility] Address [address] [place] [address] Care Team Providers Care Boom Supervisor Name Role Phone Eric Dailey MD Primary Care Provider [phone] Social History Tobacco UseTypesPacks/DayYears UsedDateSmoking Tobacco: Never Assessed CommentsUnknownSex and Gender InformationValueDate RecordedSex Assigned at Not on fileLegal YtsFgfxch30/15/2023 6:35 PM EDTGender IdentityNot on fileSexual OrientationNot on file Last Filed Vital Signs Vital SignReadingTime TakenCommentsBlood Pressure--Pulse--Temperature-- Respiratory Rate--Oxygen Saturation--Inhaled Oxygen Concentration--Kkoywd66.7 kg (178 lb)10/27/2021 12:00 PM DHPQyimim566.9 cm (5' 1 )10/27/2021 12:00 PM EDTBody Mass Index33.6308 12:00 PM EDT Plan of Treatment Not on file Insurance * Guarantor: Catalina Rodriguez TypeRelation to PatientDate of PhoneBilling AddressPersonal/DovzogRwwu18/25/1956 [address] [place] [address] Care Teams Team MemberRelationshipSpecialtyStart DateEnd Date Eric Dailey MD PCP - GeneralFamily Medicine11/11/22
--- OUTSIDE RECORDS SUMMARY | 2025-02-12 14:35 | XMS_ITS | Clinical Summary ---
Author Organization [employer] [facility] Address [id number] [address] [place] [address] Care Team Providers Care Provider Relations Representative Name Role Phone Javed, FelisaRadha GUZMANN-PLASTERING CONTRACTOR Primary Care Provider [phone] Allergies Active AllergyReactionsCriticalityNoted DateCommentsSulfa (Sulfonamide Antibiotics)Itching,KhhuOagfjk88/18/2017 Medications MedicationSigDispense QuantityRefillsLast FilledStart DateEnd DateStatus omeprazole [...] 1Active Active Problems ProblemNoted DateDiagnosed DateIdiopathic pulmonary /09/2019Dyspnea on qigxnzhc09/18/2017Chronic cough10/28/2016OSA on CPAP10/28/2016History of tobacco use10/28/2016Restrictive lung hnfvzsf6510/28/2016 Resolved Problems ProblemNoted DateDiagnosed DateResolved DateFibrosis lung Abnormal CT scan, lung Family History Medical HistoryRelationNameCommentsHeart diseaseMotherAnesthesia problemsNeg Hx RelationNameStatusCommentsFatherDeceasedMotherDeceased Social History Tobacco UseTypesPacks/DayYears UsedDateSmoking Tobacco: HsolunOhwnlbxjet78 03/06/1971 - 03/06/1978Smokeless Tobacco: Never Tobacco Cessation:Counseling Given: Not Answered Alcohol UseStandard Drinks/WeekCommentsNo1 (1 standard drink = 0.6 oz pure alcohol)ChildcareAnswerDate PqtvrujkEjrswxyxjRgpaupy15/03/2019EmploymentAnswer Date NzvprmmrTwcytqrvqhRltxbgn42/03/2019Hunger ScreeningAnswerDate Recorded Within the past 12 months we worried whether our food would run out before we got money to buy more.Never True06/02/2022Within the past 12 months the food we bought just didn't last and we didn't have money to get more.Never True 3Purpose - LifeAnswerDate RecordedPurpose and direction in lifeUnknown 1CommentsNoSex and Gender InformationValueDate RecordedSex Assigned at BirthNot on fileLegal RmyMcnwig12/06/2015 11:34 AM EDTGender IdentityNot on fileSexual OrientationNot on file Last Filed Vital Signs Vital SignReadingTime TakenCommentsBlood Wutvqtnd898/7207 10:43 AM EDT Dzmsp0971/10/2025 10:43 AM DYXMpvnsrjhrxl45.6 ??C (97.8 ??F)11/12/2020 11:21 AM EDTRespiratory Vkpf383406/02/2022 10:24 AM EDTOxygen Tzbtfqnund50%09/19/2024 10:43 AM EDTInhaled Oxygen Concentration--Fmuwjy41.1 kg (178 lb 11.2 oz)09/19/2024 10:43 AM KHBCsaawz045.9 cm (5' 1 )09/19/2024 10:43 AM EDTBody Mass Index33.77 09/19/2024 10:43 AM EDT Plan of Treatment DateTypeDepartmentCare Team (Latest Contact Info)Tcftmrodmfw75/08/2026 3:30 PM ESTOffice Visit [facility] [address] [place] [id number] Stefani Asif, DO [address] [address] Health MaintenanceDue DateLast DoneCommentsDepression Swjircqip49/25/1969Tobacco Zjazqbvaf52/25/1969Adult BMI Follow Up Plan1974DTaP,Tdap and Td Vaccines (1 - Tdap)1975Zoster (Shingles) Vaccine (1 of 2)2006Fall Risk Mlbbiijik28/25/2022COVID-19 Vaccine (3 - 2024- season)/, 05/20/2020Influenza Epzlkjh23/, 12/14/2015Adult BMI Screening RSV ( or age 60+ yrs) (1 - 1-dose 75+ series) 2031 [employer] Not on file Insurance Care Teams Team MemberRelationshipSpecialtyStart DateEnd Date Javed, Felisa L, PAWN BROKER-PLASTERING CONTRACTOR [address] [place] [address] PCP - GeneralNurse Practitioner09/03/24
--- OUTSIDE RECORDS SUMMARY | 2025-02-12 14:35 | XMS_ITS | Clinical Summary ---
Author Organization [facility] Address [address] [place] [address] Care Team Providers Care Medical Assistant Cardiology Name Role Phone Eric Dailey MD Primary Care Provider [phone] Allergies Active AllergyReactionsCriticalityNoted DateCommentsSulfa (Sulfonamide Antibiotics)Rash-Mild06/22/2017 Medications [...] (idiopathic pulmonary fibrosis)08/04/[address]08/04/2017Interstitial lung gxjkazb9106/27/2017Dyspnea on zgzktnsu17/17/2018 Family History Medical HistoryRelationNameCommentsDiabetesMotherRelationNameStatusComments Mother Social History Tobacco UseTypesPacks/DayYears UsedDateSmoking Tobacco: FormerCigarettes0.915637 - 1978Smokeless Tobacco: FormerAlcohol UseStandard Drinks/WeekCommentsYes0 (1 standard drink = 0.6 oz pure alcohol)occasionalCommentsUnknownSex and Gender InformationValueDate RecordedSex Assigned at BirthNot on fileLegal Sex Ycgqun1305/26/2017 11:48 AM EDTGender IdentityNot on fileSexual OrientationNot on file Last Filed Vital Signs Vital SignReadingTime TakenCommentsBlood Meqwvzdz724/6311 2:44 PM EST Jkhgu655901/17/2019 2:44 PM ESTTemperature--Respiratory Pvyt526203/19/2018 2:44 PM ESTOxygen Ohxmowwqcq62%01/17/2019 2:44 PM ESTInhaled Oxygen Concentration-- Xdylmv35.4 kg (192 lb 9.6 oz)01/17/2019 2:44 PM EMUMhyknf205.9 cm (5' 0.2 ) 01/17/2019 2:44 PM ESTBody Mass Index37.37103/19/2018 2:44 PM EST Plan of Treatment Health MaintenanceDue DateLast DoneCommentsCologuard (average risk only) 1955 4794Buntzhamuvl36/25/1957Colorectal Cancer Jamaodpcm60/25/1957FIT (average risk only)1956Hepatitis C Yktgwaoef17/25/1957DTaP,Tdap,and Td Vaccines (1 - Tdap)1975Pneumococcal Vaccines 50years + (1 of 1 - PCV)2006Zoster Recombinant Vaccines (1 of 2)2006DEXA Bone Density Elkebrnk77/25/2022 Alternating Mammogram/MRI/OVID-19 Vaccine (1 - 2024- season)2024Influenza Vaccine (#1)2024reast Cancer Screening 01/30/20257705Slgkfewxq22Respiratory Syncytial Virus (RSV) or ages 60 years and older (1 - 1-dose 75+ series)2031 Respiratory Syncytial Virus (RSV) ages 0 thru 19 monthsAged OutNo longer eligible based on patient's age to complete this topic Insurance Care Teams Team MemberRelationshipSpecialtyStart DateEnd Date Eric Dailey MD [address] [place] [address] PCP - GeneralFamily Medicine05/31/17
--- OUTSIDE RECORDS SUMMARY | 2025-02-12 14:35 | XMS_ITS | Patient Health Record ---
Author Organization [facility] [place] Address [address] [place] [address] Care Team Providers Care Drum Tender Name Role Phone Eric Dailey MD Primary [...] Problem History of excision of intestinal structure (629755844) Acquired absence of other specified parts of digestive tract (Z90.49) Activeconfirmed Plan Of Treatment No Information Insurance Providers Payer Name Payer Address Payer Phone Subscriber Number Group Number Insured Name Patient Relationship to Insured Coverage Start Date Coverage End Date [place] [address] [place] [address] [id number] Bárbara Rodriguezelf - patient is the insuredAARP MEDICARE ADVANTAGEPO [address] [address] [place] [id number], TracySelf - patient is the insured Medical (General) History Medical History History ICD Code Abdominal pain, RUQ R10.11 Biliary dyskinesia K82.8 Surgical History Surgery Date(Month/Year) knee meniscus 1996 robotic cholecystectomy with ICG cholang iogram DOS 08/23/22 Dr Stephenson 08/23/2022 L shoulder Triceptear 2013 r knee replacement 2013 Hospitalization History Reason Date(Month/Year) see above
--- NOTE | 2025-02-12 14:57 | P.CN_ITS ---
Consult Note: HPI Data of Consult Patient: known to practice within the last 3 years Consult date: 02/12/25 Requesting Physician: Alyssa Mathur NP Primary Care Provider: MARY CLEMENS Consult Narrative Reason for consult: thoracic pain Narrative: Catalina Rodriguez a pleasant 69 year old female with severe thoracic pain starting around 3 months ago without cause or injury. denies rash or shingles at that time. notes pain in upper back has been up to 10/10 burning sharp pain. notes current pain 8/10 but increases with standing, walking, lifting, activity, sleep, and weather changes. Patient cannot tolerate PT due to pain, reports historically PT has not been beneficial. She tries to engage in HEP at least 3x/week > 6 weeks without improvement. finds mild benefit to heat, failed oral steroids and robaxin. on meloxicam 15mg daily with minimal relief through PCP. Recently underwent thoracic MRI consistent with thoracic disc bulge at T6,7 and degenerative changes. recently underwent bilateral T6-7 TFESI with no ongoing relief. cc:: CC: Alyssa Mathur NP Review of Systems ROS Musculoskeletal Reports: back pain PFSH PFSH Medical History (Updated 02/12/25 @ 14:58 by Alyssa Mathur NP) Chronic cough ?R05.3 - Chronic cough (ICD-10) Sleep apnea ?G47.30 - Sleep apnea, unspecified (ICD-10) Arthritis ?M19.90 - Unspecified osteoarthritis, unspecified site (ICD-10) COVID-19 ?U07.1 - COVID-19 (ICD-10) Migraine ?G43.909 - Migraine, unspecified, not intractable, without status migrainosus (ICD-10) GERD (gastroesophageal reflux disease) ?K21.9 - Gastro-esophageal reflux disease without esophagitis (ICD-10) Hypothyroidism ?E03.9 - Hypothyroidism, unspecified (ICD-10) Biliary dyskinesia ?K82.8 - Other specified diseases of gallbladder (ICD-10) Pulmonary fibrosis ?J84.10 - Pulmonary fibrosis, unspecified (ICD-10) Surgical History History of lung biopsy ?Z98.890 - Other specified postprocedural states (ICD-10) History of colonoscopy ?Z98.890 - Other specified postprocedural states (ICD-10) History of arthroscopy of shoulder ?Z98.890 - Other specified postprocedural states (ICD-10) History of arthroscopy of knee ?Z98.890 - Other specified postprocedural states (ICD-10) History of arthroplasty of knee ?Z96.659 - Presence of unspecified artificial knee joint (ICD-10) History of breast biopsy ?Z98.890 - Other specified postprocedural states (ICD-10) Family History Other CHF (congestive heart failure) Family history of diabetes mellitus Family history of seizures Social History Within the past year, how often did you have a drink containing alcohol: monthly or less Smoking status: Former smoker What tobacco products do you use: cigarettes Smoking quit date/years: >15 years ago Non-prescribed substance use: denies use Previous occupational history: Retired Highest level of school completed/degree received: high school graduate Little interest or pleasure in doing things: not at all Feeling down, depressed, or hopeless: not at all Meds Home Medications and Allergies Home Medications ?Medication ?Instructions ?Recorded ?Confirmed ?Type levothyroxine 137 mcg tablet 137 mcg PO QDAY 08/19/22 02/03/25 History pirfenidone 801 mg tablet 801 mg PO QDAY 08/19/2201/12 History losartan 100 mg tablet 100 mg PO DAILY 01/22/25 History pantoprazole 40 mg tablet,delayed 40 mg PO BID 5 02/03/25 History release Allergies Allergy/AdvReac Type Severity Reaction Status Date / Time Sulfa (Sulfonamide Allergy Rash Verified 02/03/25 08:41 Antibiotics) Exam Constitutional Documenting provider has reviewed patient's vital signs: yes Common normals: no apparent distress, oriented x3 and alert General appearance: cooperative HENMT Common normals: normocephalic, hearing grossly normal bilaterally and moist oral mucous membranes Head and scalp: normocephalic Eye Common normals: PERRL Pupil: PERRL Neck & C-Spine Common normals: full ROM General: normal visual inspection Chest Common normals: inspection of chest normal Respiratory Common normals: normal respiratory effort, no retractions and no use of accessory muscles Back & Pelvis Thoracic spine/upper back: ROM limited, pain with ROM, thoracic spinal tenderness and paraspinal muscle tenderness; no paraspinal muscle spasm Other: intercostal neuralgia noted to bilateral T6,7,8 positive facet loading Neuro Common normals: oriented x3 Sensorium/orientation: alert Psych Common normals: mental status grossly normal, thought process normal, cooperative, affect normal, speech normal and activity/motor behavior normal Speech: normal speech Thought process: normal thought process Results Additional Findings Additional findings: If on a controlled substance or opioids, I have checked an [place] report on this patient and there are no aberrancies noted in the prescribing history.??If on a controlled substance or opioid a drug screen was completed and reviewed within the last year, and if there has not been a drug screen completed we ordered one today to monitor higher risk, state monitored pain medication use. As part of providing excellent, safe, comprehensive care, the following was completed at our patient's visit: 1. A medication reconciliation and review to ensure accurate knowledge of current/active medications, including asking our patients to inform us about any onrg-sju-izncjcb medications or herbal remedies/nutritional supplements/alternative remedies. 2. A review to specifically ensure our patients have had annual screening for screening for depression, screening for tobacco use, and screening for unhealthy alcohol use. For concerning screenings had a discussion with the patient, provided patient education, and recommended follow-up with primary care provider when appropriate. If patient noted with a risk of falling, they received education on strength, gait, and balance training to prevent future risk of falling. Portions of this note may have been carried over from the previous visit and updated as appropriate. Please note this office utilizes paper charting in addition to the electronic medical record. A list of current medications, vitals, and PMH is available there as the clinical staff outside of myself do not have access to [employer] charting during the clinic day operations. As part of providing quality comprehensive care the current medications, vitals, and PMH were reviewed in the paper chart. Assessment and Plan Assessment and Plan (1) Intercostal neuralgia: (2) Bulging of thoracic intervertebral disc: (3) Thoracic radiculopathy: (4) Myofascial pain: Plan The patient has had over 3 months of moderate to severe thoracic pain with functional impairment and inadequate response to conservative care including NSAIDS (unless there are contraindication such as concurrent blood thinners), multiple oral or topical pain medications, and home exercise program/physical therapy.? I have reviewed the imaging of the thoracic spine and no red flags were identified.? The Oswestry Disability Index was completed, and the patient scored a 24%.? bilateral T6,7 T7,8 intercostal nerve block under fluoroscopy in consideration of RFA for intercostal neuralgia start gabapentin 100mg bid, risks vs benefits reviewed continue baclofen 5-10mg tid prn pain/spasms continue HEP as tolerated continue prn heat f/u after injection
== END 2025-02-12 14:31 | disposition home or self-care (01) ==
PROVIDERS: PCP Nurse Practitioner; Visit Provider Nurse Practitioner
DX: G58.0 Intercostal neuropathy (principal); M51.34 Other intervertebral disc degeneration, thoracic region; M79.18 Myalgia, other site
CPT/HCPCS: G0463

== ENCOUNTER 2025-02-24 11:32 | Day surgery (SDC) | payer OTHER, SELFPAY ==
[2025-02-24 11:43] VITALS: BP 109/76; PULSE 70; TEMP 35.9; O2SAT 100
[2025-02-24 12:18] VITALS: BP 147/64; PULSE 67; O2SAT 97
[2025-02-24 12:19] VITALS: BP 130/57; PULSE 66; O2SAT 93
[2025-02-24] MEDS: IOHEXOL 240 MG/ML - 10 ML VIAL 24 MG INJ (12:21)
[2025-02-24] MEDS: BUPIVACAINE HCL 0.25% PF 25 MG/10 ML VIAL 18 ML INJ (12:21)
[2025-02-24] MEDS: LIDOCAINE HCL 2% 400 MG/20 ML MDV INJ (12:21)
[2025-02-24] MEDS: METHYLPREDNISOLONE ACETATE 40 MG/ML VIAL 80 MG IM (12:22)
--- NOTE | 2025-02-24 12:27 | W.PM.PROCNOT ---
Date of procedure: 02/24/25 Pre-op diagnosis: Pain due to intercostal neuralgia Post-op diagnosis: same as pre-op Procedure: Procedure: Bilateral T6, 7, 8 intercostal nerve block Medications: Bupivacaine 0.25% 4cc, depomedrol 40mg x2 After informed consent was obtained, the patient was brought to the medical procedures unit and placed in the prone position.? A timeout was completed verifying the correct patient, procedure site, position, and special equipment.? The left T6 rib was contacted with the needle tip 1 cm lateral to the costotransverse junction and the needle tip was walked caudally.? Omnipaque dye was injected to show adequate spread.? The above-mentioned injectate was placed in 1 mL aliquots and the procedure was repeated at left T7, 8.? The same procedure was then completed on the opposite side. The patient tolerated the procedures well and was found suitable for discharge in the accompaniment of a responsible adult. Anesthesia: Local Surgeon: Evangelina Jj Pathology: none sent Condition: stable Disposition: no change
== END 2025-02-24 12:32 | disposition home or self-care (01) ==
PROVIDERS: PCP Nurse Practitioner; Visit Provider Anesthesiology
DX: G58.0 Intercostal neuropathy (principal); G89.29 Other chronic pain
CPT/HCPCS: 64420; 64421; J0665; J1010; Q9966

== ENCOUNTER 2025-03-03 14:10 | Outpatient (OUT) | payer OTHER, SELFPAY ==
--- OUTSIDE RECORDS SUMMARY | 2025-03-03 14:12 | XMS_ITS | Clinical Summary ---
Demographics Address [address] [place] [address] Home Phone Mobile Phone Email Address Preferred Language en Marital Status Orthodoxy Affiliation Unknown Race White Ethnic Group Not or Lati no Author Organization [facility] Address [address] [place] [address] Care Team Providers Care Laundry Marker Supervisor Name Role Phone Eric Dailey MD Primary Care Provider [phone] Social History Tobacco UseTypesPacks/DayYears UsedDateSmoking Tobacco: Never Assessed CommentsUnknownSex and Gender InformationValueDate RecordedSex Assigned at Not on fileLegal DluZthtzm55/15/2023 6:35 PM EDTGender IdentityNot on fileSexual OrientationNot on file Last Filed Vital Signs Vital SignReadingTime TakenCommentsBlood Pressure--Pulse--Temperature-- Respiratory Rate--Oxygen Saturation--Inhaled Oxygen Concentration--Rnkxby73.7 kg (178 lb)10/27/2021 12:00 PM QAKLwyluo280.9 cm (5' 1 )10/27/2021 12:00 PM EDTBody Mass Index33.6308 12:00 PM EDT Plan of Treatment Not on file Insurance * Guarantor: Catalina Rodriguez TypeRelation to PatientDate of PhoneBilling AddressPersonal/GiwfbrQzqa09/25/1956 [address] [place] [address] Care Teams Team MemberRelationshipSpecialtyStart DateEnd Date Eric Dailey MD PCP - GeneralFamily Medicine11/11/22
--- OUTSIDE RECORDS SUMMARY | 2025-03-03 14:12 | XMS_ITS | Clinical Summary ---
Author Organization [facility] Address [address] [place] [address] Care Team Providers Care Senior Qc Technician Name Role Phone Eric Dailey MD Primary Care Provider [phone] Allergies Active AllergyReactionsCriticalityNoted DateCommentsSulfa (Sulfonamide Antibiotics)Rash-Mild06/22/2017 Medications [...] (idiopathic pulmonary fibrosis)08/04/[address]08/04/2017Interstitial lung iilgkvo2306/27/2017Dyspnea on skgzgxco79/17/2018 Family History Medical HistoryRelationNameCommentsDiabetesMotherRelationNameStatusComments Mother Social History Tobacco UseTypesPacks/DayYears UsedDateSmoking Tobacco: FormerCigarettes0.590407 - 1978Smokeless Tobacco: FormerAlcohol UseStandard Drinks/WeekCommentsYes0 (1 standard drink = 0.6 oz pure alcohol)occasionalCommentsUnknownSex and Gender InformationValueDate RecordedSex Assigned at BirthNot on fileLegal Sex Nvttsa3405/26/2017 11:48 AM EDTGender IdentityNot on fileSexual OrientationNot on file Last Filed Vital Signs Vital SignReadingTime TakenCommentsBlood Mexqaerj254/6311 2:44 PM EST Atbpf519401/17/2019 2:44 PM ESTTemperature--Respiratory Lkkv017503/19/2018 2:44 PM ESTOxygen Kbgxzwgjkl70%01/17/2019 2:44 PM ESTInhaled Oxygen Concentration-- Ticzpi34.4 kg (192 lb 9.6 oz)01/17/2019 2:44 PM KDREaqdhr273.9 cm (5' 0.2 ) 01/17/2019 2:44 PM ESTBody Mass Index37.37103/19/2018 2:44 PM EST Plan of Treatment Health MaintenanceDue DateLast DoneCommentsCologuard (average risk only) 1955 5442Wlosecgcozd14/25/1957Colorectal Cancer Rsqedzvtu02/25/1957FIT (average risk only)1956Hepatitis C Ogzcxexcf53/25/1957DTaP,Tdap,and Td Vaccines (1 - Tdap)1975Pneumococcal Vaccines 50years + (1 of 1 - PCV)2006Zoster Recombinant Vaccines (1 of 2)2006DEXA Bone Density Grrwispg98/25/2022 Alternating Mammogram/MRI/, 01/30/2023OVID-19 Vaccine (1 - 2024- season)2024Influenza Vaccine (#1)2024reast Cancer Screening 01/30/20250255Gqmsfjnmq28/20/798654/, 01/30/2023Respiratory Syncytial Virus (RSV) or ages 60 years and older (1 - 1-dose 75+ series)2031 Respiratory Syncytial Virus (RSV) ages 0 thru 19 monthsAged OutNo longer eligible based on patient's age to complete this topic Insurance Care Teams Team MemberRelationshipSpecialtyStart DateEnd Date Eric Dailey MD [address] [place] [id number] PCP - GeneralFamily Medicine05/31/17
--- OUTSIDE RECORDS SUMMARY | 2025-03-03 14:13 | XMS_ITS | Patient Health Record ---
Author Organization [facility] [place] Address [address] [place] [address] Care Team Providers Care Clocksmith Name Role Phone Eric Dailey MD Primary [...] Problem History of excision of intestinal structure ([id number]) Acquired absence of other specified parts of digestive tract (Z90.49) Activeconfirmed Plan Of Treatment No Information Insurance Providers Payer Name Payer Address Payer Phone Subscriber Number Group Number Insured Name Patient Relationship to Insured Coverage Start Date Coverage End Date [place] [address] [place] [address] [id number] áBrbara Rodriguezelf - patient is the insuredAARP MEDICARE ADVANTAGEPO [address] [address] [place] [id number], TracySelf - patient is the insured Medical (General) History Medical History History ICD Code Abdominal pain, RUQ R10.11 Biliary dyskinesia K82.8 Surgical History Surgery Date(Month/Year) r knee replacement 2013 L shoulder Triceptear 2013 robotic cholecystectomy with ICG cholang iogram DOS 08/23/22 Dr Stephenson 08/23/2022 knee meniscus 1996 Hospitalization History Reason Date(Month/Year) see above
--- NOTE | 2025-03-03 15:45 | PM.CN ---
Consult Note: HPI Data of Consult Patient: known to practice within the last 3 years Consult date: 03/03/25 Requesting Physician: Evangelina Jj MD Primary Care Provider: MARY CLEMENS Consult Narrative Reason for consult: midback pain Narrative: 69yof who presents for assessment. endorses 100% relief after recent intercostal nerve block. states that she is able to accomplish tasks that she previously could not do. cc:: CC: Evangelina Jj MD Review of Systems ROS Status of ROS 10 or more systems reviewed and unremarkable except as noted in history and below [facility] Medical History Chronic cough ?R05.3 - Chronic cough (ICD-10) Sleep apnea ?G47.30 - Sleep apnea, unspecified (ICD-10) Arthritis ?M19.90 - Unspecified osteoarthritis, unspecified site (ICD-10) COVID-19 ?U07.1 - COVID-19 (ICD-10) Migraine ?G43.909 - Migraine, unspecified, not intractable, without status migrainosus (ICD-10) GERD (gastroesophageal reflux disease) ?K21.9 - Gastro-esophageal reflux disease without esophagitis (ICD-10) Hypothyroidism ?E03.9 - Hypothyroidism, unspecified (ICD-10) Biliary dyskinesia ?K82.8 - Other specified diseases of gallbladder (ICD-10) Pulmonary fibrosis ?J84.10 - Pulmonary fibrosis, unspecified (ICD-10) Surgical History History of lung biopsy ?Z98.890 - Other specified postprocedural states (ICD-10) History of colonoscopy ?Z98.890 - Other specified postprocedural states (ICD-10) History of arthroscopy of shoulder ?Z98.890 - Other specified postprocedural states (ICD-10) History of arthroscopy of knee ?Z98.890 - Other specified postprocedural states (ICD-10) History of arthroplasty of knee ?Z96.659 - Presence of unspecified artificial knee joint (ICD-10) History of breast biopsy ?Z98.890 - Other specified postprocedural states (ICD-10) Family History Other CHF (congestive heart failure) Family history of diabetes mellitus Family history of seizures Social History Within the past year, how often did you have a drink containing alcohol: monthly or less Smoking status: Former smoker What tobacco products do you use: cigarettes Smoking quit date/years: >15 years ago Non-prescribed substance use: denies use Previous occupational history: Retired Highest level of school completed/degree received: high school graduate Little interest or pleasure in doing things: not at all Feeling down, depressed, or hopeless: not at all Meds Home Medications and Allergies Home Medications ?Medication ?Instructions ?Recorded ?Confirmed ?Type levothyroxine 137 mcg tablet 137 mcg PO QDAY 08/19/22 02/24/25 History pirfenidone 801 mg tablet 801 mg PO QDAY 08/19/22 02/24/25 History losartan 100 mg tablet 100 mg PO DAILY 01/22/25 02/24/25 History pantoprazole 40 mg tablet,delayed 40 mg PO BID 01/22/25 02/24/25 History release gabapentin 100 mg capsule 100 mg PO BID #60 caps 02/12/25 02/24/25 Rx Allergies Allergy/AdvReac Type Severity Reaction Status Date / Time Sulfa (Sulfonamide Allergy Rash Verified 02/24/25 11:45 Antibiotics) Exam Narrative Exam Narrative: Psych-alert and oriented x 3. Attentive and appropriate, constitutionally normal, displays normal mood and affect per situation.? There are no obvious deficits in memory, reasoning, or intellect.? Skin-no obvious rashes, bruising, erythema noted to the patient's area of pain. Extremities- extremities are warm with minimal edema and palpable pulses. Thoracic -no significant tenderness to palpation noted. Range of motion is slightly diminished with flexion, extension due to pain. Coordination remains intact.? Gait remains non-antalgic. Assessment and Plan Assessment and Plan (1) Intercostal neuralgia: Plan 69yof who presents for assessment. endorses significant relief after recent intercostal nerve block. discussed that at some point, pain may return, and we could reassess at that point in time. she expressed understanding. meds reviewed, no changes. follow up as needed.
== END 2025-03-03 14:11 | disposition home or self-care (01) ==
LOC: PM 14:10
PROVIDERS: PCP Nurse Practitioner; Visit Provider Anesthesiology
DX: G58.0 Intercostal neuropathy (principal)
CPT/HCPCS: G0463